=== PATIENT | female | born 1955 | race Caucasian/White ===

== ENCOUNTER 2023-08-21 08:53 | Day surgery (SDC) | payer MEDICARE, OTHER ==
[2023-08-21] MEDS: Lactated Ringers 1,000 ML IV SCH (09:30)
[2023-08-21 09:45] VITALS: RESP 18; O2SAT 99
[2023-08-21 09:53] LABS: Absolute Neutrophil Ct (ANC) 3.35 x10^3/uL (1.56-6.13); BASOPHIL % 0.6 % (0.1-1.2); Basophil (Absolute #) 0.03 x10^3/uL (0.01-0.08); Eosinophil % 2.7 % (0.7-5.8); Eosinophil (Absolute #) 0.13 x10^3/uL (0.04-0.36); Hematocrit 35.5 % (34.1-44.9); Hemoglobin 11.3 g/dL (11.2-15.7); IMMATURE GRAN # 0.02 x10^3u/L (0.001-0.031); IMMATURE GRAN % 0.4 % (0.001-0.429); Lymphocytes % 14.8 % (19.3-51.7); Mean Cell Volume 91.7 fL (79.4-94.8); Mean Corpuscular Hemoglobin 29.2 pg (25.6-32.2); Mean Corpuscular Hgb Concent. 31.8 g/dL (32.2-35.5); Mean Platelet Volume 9.8 fL (9.4-12.3); Monocytes % 10.6 % (4.7-12.5); Neutrophil % 70.9 % (34.0-71.1); Platelet Count 209 x10^3/uL (182-369); Red Blood Count 3.87 x10^6/uL (3.93-5.22); Red Cell Distribution Width 13.4 % (11.7-14.4); White Blood Count 4.7 x10^3/uL (3.98-10.04)
[2023-08-21 10:05] LABS: ALBUMIN 4.3 g/dL (3.5-5.0); BILIRUBIN,TOTAL 0.5 mg/dL (0.2-1.3); Calcium 9.6 mg/dL (8.4-10.2); Creatinine 1 0.84 mg/dL (0.52-1.04); EST GLOMERULAR FILTRATION RATE 75.7 ML/MIN; Potassium 4.2 mmol/L (3.5-5.1); Total Protein 7.3 g/dL (6.3-8.2)
--- NOTE | 2023-08-21 11:22 | HP ---
HISTORY AND PHYSICAL HISTORY OF PRESENT ILLNESS: The patient is a 68-year-old female with subcutaneous soft mass over the clavicle, base of neck and shoulder area enlarging the past 4 years. The patient also eventually needs a followup screening colonoscopy. The last one was at age 50. She is 68 now. PAST MEDICAL HISTORY: Reflux, pulmonary fibrosis, hypothyroidism, history of anemia in the past chronic, had hyperlipidemia in the past. HOME MEDICATIONS: Folic acid, Synthroid, Nexium, Evenity, Plaquenil, gabapentin, and Pepcid. ALLERGIES: No known drug allergies. PAST SURGICAL HISTORY: The patient had lap zaheer in the past, carpal tunnel in the past, tubal in the past, colonoscopy in the past. SOCIAL HISTORY: No smoking or alcohol abuse. FAMILY HISTORY: COPD, heart disease, neuropathy, hypertension, hyperlipidemia. No breast cancer in the family. REVIEW OF SYSTEMS: Twelve systems reviewed. No chest pain or palpitations. Other systems negative or noncontributory as above and per preadmission questionnaire. PHYSICAL EXAMINATION: GENERAL: Height 5 feet 2 inches. BMI 24.69. No acute distress. HEENT: Sclerae nonicteric. NECK: No JVD. Base of neck and shoulder area over clavicle a soft, subcutaneous mass, questionable lipoma. CHEST: Equal excursion. Nonlabored breathing. CARDIOVASCULAR: Regular rate and rhythm. ABDOMEN: Soft. EXTREMITIES: No cyanosis or edema. NEUROLOGIC: Alert, moving extremities symmetrically. PSYCHIATRIC: Appropriate mood and affect. SKIN: Dry. RECTAL: Deferred until the time of eventual colonoscopy. IMPRESSION: Enlarging right base of the neck, shoulder area, subcutaneous mass or lipoma over the clavicle. Feel she would benefit excision. Risks of bleeding, infection; possibly requiring packing; aches, pain, burning or numbness; risk of anesthesia, DVT, PE, pneumonia but not limited to risk of nerve irritation; scar formation or injury; risk of aches, pains, burning, numbness; weakness of shoulder, upper extremity but not limited to. General risk of anesthesia, DVT, PE, pneumonia but not limited to. We will excise. If it ends up being a lipoma, will not recur but could get at similar nodule, lipoma or subcutaneous mass adjacent to or elsewhere on the body. She understands and agrees to the planned. We will proceed with excisional biopsy right base of neck/shoulder area over clavicle subcutaneous mass or lipoma as an outpatient under general anesthetic. On a later date, the patient needs a screening colonoscopy. Risk of bleeding or infection, risk of bowel injury, possibly requiring open procedure. Risk of incomplete exam possibly requiring barium enema or swallow; possible missed or nondiagnosis. Otherwise, we will schedule screening colonoscopy at a later date. Otherwise, continue medications for reflux, hyperlipidemia, thyroid disease, autoimmune disorder as an outpatient.
[2023-08-21] MEDS ORDERED: Lactated Ringers 1,000 ML IV ONE (11:30)
[2023-08-21] MEDS ORDERED: CEFAZOLIN 2 GM-D5W BAG** 2 GM/50 ML ML IV ONE (11:31)
[2023-08-21] MEDS: CEFAZOLIN 2 GM-D5W BAG** 2 GM/50 ML ML IV SCH (11:32)
[2023-08-21 11:55] LABS: Slide Review 1 YES
[2023-08-21] MEDS ORDERED: Sensorcaine 0.25% 10 ML ONE (11:55)
[2023-08-21] MEDS ORDERED: TORAdol 30 mg Injection ONE (11:56)
[2023-08-21] MEDS ORDERED: Zofran 4 MG/2 ML VIAL ONE (11:56)
[2023-08-21] MEDS ORDERED: DIPRIVAN 200 MG/20 ML IV ONE (11:56)
[2023-08-21] MEDS ORDERED: BRIDION 200MG/2ML IV ONE (11:56)
[2023-08-21] MEDS ORDERED: SUBLIMAZE 100 MCG/2 ML ONE (11:56)
[2023-08-21] MEDS ORDERED: ROCURONIUM BROMIDE IV ONE (11:56)
[2023-08-21] MEDS ORDERED: Xylocaine-Mpf 2% 5 Ml Vial ONE (11:56)
[2023-08-21] MEDS ORDERED: Decadron 4 MG INJ ONE (11:56)
[2023-08-21] MEDS ORDERED: PHENYLEPHRINE HCL ONE (12:10)
[2023-08-21 13:54] VITALS: TEMP 97.1
[2023-08-21 14:11] VITALS: BP 131/80; PULSE 67
--- NOTE | 2023-08-22 09:27 | OP ---
SURGERY DATE/TIME: 08/21/2023 0797 - 0079 PREOPERATIVE DIAGNOSIS: Enlarging subcutaneous mass or lipoma base of the right neck toward the shoulder area. POSTOPERATIVE DIAGNOSIS: Enlarging subcutaneous mass or lipoma base of the right neck toward the shoulder area. PROCEDURE: Biopsy of right base of neck toward the right shoulder area of lipoma (approximately 6.5 cm). SURGEON: Gopal Marie MD ANESTHESIA: General. QUANTITATIVE BLOOD LOSS: Minimal. COMPLICATIONS: None. INDICATIONS: As noted above. Consent was obtained. DESCRIPTION OF PROCEDURE AND FINDINGS: The patient was taken to the operating room. General anesthesia induced, prepped and draped in sterile fashion. After official time-out and no disagreement with planned procedure, longitudinal incision was made to the base of the neck overlying the area. Dissection was carried down and circumferentially around this lobular lipoma (about 6.5 cm in size), passed off to Pathology, dissected off the underlying fascia. The subcutaneous closed with 3-0 Vicryl, skin closed with 4-0 Vicryl. Steri-Strips were applied. Marcaine 0.25% locally injected around the area. The patient tolerated the procedure well. There were no complications. Findings discussed with family in the waiting room.
== END 2023-08-21 14:15 | disposition home or self-care (01) ==
LOC: SDC 08:53
PROVIDERS: ATTEND Surgery
DX: D17.0 Benign lipomatous neoplasm of skin and subcutaneous tissue of head, face and neck (principal); D64.9 Anemia, unspecified; Z79.899 Other long term (current) drug therapy
CPT/HCPCS: 36415; 80053; 85025; 88304; 93005; J0690; J1100; J1885; J2371; J2405; J2704; J3010